=== PATIENT | female | born 1990 | race Caucasian/White ===

== ENCOUNTER 2021-02-15 09:10 | Outpatient (CLI) | payer BC ==
[2021-02-15 19:39] LABS: SARS-CoV-2 PCR by NAA Not Detected (NotDetected)
== END 2021-02-15 09:11 | disposition home or self-care (01) ==
LOC: CSHLAB 09:10
PROVIDERS: ATTEND Obstetrics & Gynecology
DX: Z20.822 Contact with and (suspected) exposure to COVID-19 (principal)
CPT/HCPCS: U0003; U0005

== ENCOUNTER → 2022-09-11 | Day surgery (SDC) | payer BC ==
[~2022-09-11] MED LIST: Methotrexate Sodium/PF 100 MG in Syringe 0 ML IM SCH
== END ==
LOC: CSHSDC/OP 10:09
PROVIDERS: ATTEND Obstetrics & Gynecology
DX: O04.89 (Induced) termination of pregnancy with other complications (principal)
CPT/HCPCS: J9250

== ENCOUNTER 2022-10-17 12:19 | Day surgery (SDC) | payer BC | END 2022-10-17 13:25 | disposition home or self-care (01) | LOC: CSHSDC 12:19 | PROVIDERS: ATTEND Obstetrics & Gynecology | DX: O03.4 Incomplete spontaneous abortion without complication (principal) | CPT/HCPCS: J9250 ==

== ENCOUNTER 2022-12-23 10:20 | Day surgery (SDC) | payer BC | END 2022-12-23 11:20 | disposition home or self-care (01) | LOC: CSHSDC/OP 10:20 | PROVIDERS: ATTEND Obstetrics & Gynecology | DX: O03.4 Incomplete spontaneous abortion without complication (principal) | CPT/HCPCS: J9250 ==

== ENCOUNTER 2023-01-12 12:26 | Day surgery (SDC) | payer BC | END 2023-01-12 13:35 | disposition home or self-care (01) | LOC: CSHRAD 12:26 | PROVIDERS: ATTEND Obstetrics & Gynecology | DX: O03.4 Incomplete spontaneous abortion without complication (principal) | CPT/HCPCS: J9250 ==

== ENCOUNTER 2023-01-19 12:33 | Day surgery (SDC) | payer BC | END 2023-01-19 13:40 | disposition home or self-care (01) | LOC: CSHSDC/OP 12:33 | PROVIDERS: ATTEND Obstetrics & Gynecology | DX: O03.4 Incomplete spontaneous abortion without complication (principal); Z3A.00 Weeks of gestation of pregnancy not specified | CPT/HCPCS: J9250 ==

== ENCOUNTER 2023-01-26 11:50 | Day surgery (SDC) | payer BC | END 2023-01-26 13:05 | disposition home or self-care (01) | LOC: CSHSDC/OP 11:50 | PROVIDERS: ATTEND Obstetrics & Gynecology | DX: O03.4 Incomplete spontaneous abortion without complication (principal); Z3A.00 Weeks of gestation of pregnancy not specified | CPT/HCPCS: J9250 ==

== ENCOUNTER 2023-02-02 14:01 | Day surgery (SDC) | payer BC | END 2023-02-02 15:10 | disposition home or self-care (01) | LOC: CSHSDC/OP 14:01 | PROVIDERS: ATTEND Obstetrics & Gynecology | DX: O03.4 Incomplete spontaneous abortion without complication (principal); Z3A.00 Weeks of gestation of pregnancy not specified | CPT/HCPCS: J9250 ==

== ENCOUNTER 2023-02-10 10:22 | Day surgery (SDC) | payer BC | END 2023-02-10 11:40 | disposition home or self-care (01) | LOC: CSHSDC/OP 10:22 | PROVIDERS: ATTEND Obstetrics & Gynecology | DX: O03.4 Incomplete spontaneous abortion without complication (principal); Z3A.00 Weeks of gestation of pregnancy not specified | CPT/HCPCS: J9250 ==